=== PATIENT | female | born 1985 | race Two or more races ===

== ENCOUNTER 2022-01-21 08:18 | Inpatient (IN) | payer OTHER ==
[2022-01-21] MEDS ORDERED: Tranexamic Acid 1,000 MG in Sodium Chloride 0.9% 100 ML IV PRN (13:08)
[2022-01-21] MEDS ORDERED: Misoprostol 200 MCG Tab PO PRN (13:08)
[2022-01-21] MEDS ORDERED: Carboprost Tromethamine 250 MCG/1 ML Amp IM PRN (13:08)
[2022-01-21] MEDS ORDERED: Sodium Chloride 0.9% 2.5 ML Syringe FLUSH PRN (13:08)
[2022-01-21] MEDS ORDERED: Sodium Chloride 0.9% 10 ML Syringe FLUSH PRN (13:08)
[2022-01-21] MEDS ORDERED: Methylergonovine 0.2 MG/1 ML Amp IM PRN (13:08)
[2022-01-21] MEDS ORDERED: Lidocaine 1% 50 ML MDV INJECT PRN (13:08)
[2022-01-21] MEDS ORDERED: Sodium Chloride 0.9% 20 ML SDV IV PRN (13:08)
[2022-01-21] MEDS ORDERED: Terbutaline 1 MG/ML SDV SUBCUT PRN (13:08)
[2022-01-21] MEDS ORDERED: Water For Irrigation,Sterile 1,000 ML Container IRR PRN (13:08)
[2022-01-21] MEDS ORDERED: Oxytocin/0.9 % Sodium Chloride 30 UNIT/500 ML BAG IV SCH ×2 (13:15)
[2022-01-21] MEDS: Misoprostol 25 MCG (1/4 of 100 MCG) Tab VAG PRN ×2 (14:25→18:21)
[2022-01-21] MEDS: Lactated Ringers 1,000 ML IV SCH (14:26)
[2022-01-21 19:53] LABS: CARBON DIOXIDE,CO2 19.7 mmol/L (21.0-32.0); POTASSIUM,K 4.2 mmol/L (3.5-5.1)
[2022-01-21] MEDS: Butorphanol 1 MG/ML SDV IVPUSH PRN (20:16)
[2022-01-21] MEDS ORDERED: Labetalol 100 MG Tab PO SCH (21:00)
[2022-01-21] MEDS: Ondansetron 4 MG/2 ML SDV IVPUSH PRN (22:54)
[2022-01-22] MEDS: Lactated Ringers 1,000 ML IV SCH ×2 (01:34→08:15)
[2022-01-22] MEDS: Butorphanol 1 MG/ML SDV IVPUSH PRN (05:04)
[2022-01-22] MEDS: Ondansetron 4 MG/2 ML SDV IVPUSH PRN (05:06)
[2022-01-22] MEDS ORDERED: Phenylephrine HCl In 0.9% NaCl 1 MG/10 ML Vial ONE (06:51)
[2022-01-22] MEDS ORDERED: Dexmedetomidine 200 MCG/2 ML SDV ONE (06:51)
[2022-01-22] MEDS ORDERED: Bupivacaine 0.5% 10 ML SDV ONE (06:52)
[2022-01-22] MEDS ORDERED: ePHEDrine 50 MG/ML SDV IVPUSH PRN (06:59)
[2022-01-22] MEDS ORDERED: Phenylephrine HCl In 0.9% NaCl 1 MG/10 ML Vial IVPUSH SCH (07:00)
[2022-01-22] MEDS ORDERED: oxyCODONE 5 MG Tab PO PRN (08:44)
[2022-01-22] MEDS ORDERED: Ibuprofen 400 MG Tab PO PRN (08:44)
[2022-01-22] MEDS ORDERED: Acetaminophen 500 MG Tab PO PRN ×2 (08:44)
[2022-01-22] MEDS ORDERED: Benzocaine/Menthol 20%-0.5% Spray 78 GM Cannister TOP PRN (08:44)
[2022-01-22] MEDS ORDERED: Lanolin 100% Cream 7 GM Tube TOP PRN (08:44)
[2022-01-22] MEDS ORDERED: Docusate Sodium 100 MG Cap PO PRN (08:44)
[2022-01-22] MEDS ORDERED: Bisacodyl 10 MG Supp RECTAL PRN (08:44)
[2022-01-22] MEDS ORDERED: Witch Hazel Medicated Pads 40/Jar TOP PRN (08:44)
[2022-01-22] MEDS ORDERED: Tranexamic Acid 1,000 MG/10 ML Vial ONE (09:34)
[2022-01-22] MEDS: Ibuprofen 800 MG Tab PO PRN (22:45)
[2022-01-23 07:21] LABS: CARBON DIOXIDE,CO2 24.7 mmol/L (21.0-32.0); POTASSIUM,K 4.2 mmol/L (3.5-5.1)
[2022-01-23] MEDS: Ibuprofen 800 MG Tab PO PRN (08:06)
[2022-01-23] MEDS ORDERED: ferumoxytoL 510 MG in Sodium Chloride 0.9% 100 ML IV ONE (10:30)
== END 2022-01-23 12:56 | disposition home or self-care (01) | DRG 805 ==
LOC: MW.OB 08:18 → OBSVTOIN 01-22 08:18 → MW.OB 01-22 12:00
PROVIDERS: ADMIT Obstetrics & Gynecology; ATTEND Obstetrics & Gynecology
PROC: 10E0XZZ Delivery of Products of Conception, External Approach (ICD-10-PCS; principal; 2022-01-22)
PROC: 3E0R3BZ Introduction of Anesthetic Agent into Spinal Canal, Percutaneous Approach (ICD-10-PCS; 2022-01-22)
PROC: 3E033VJ Introduction of Other Hormone into Peripheral Vein, Percutaneous Approach (ICD-10-PCS; 2022-01-22)
PROC: 10907ZC Drainage of Amniotic Fluid, Therapeutic from Products of Conception, Via Natural or Artificial Opening (ICD-10-PCS; 2022-01-22)
PROC: 3E033VJ Introduction of Other Hormone into Peripheral Vein, Percutaneous Approach (ICD-10-PCS; 2022-01-22)
DX: O13.4 Gestational [pregnancy-induced] hypertension without significant proteinuria, complicating childbirth (principal); U07.1 COVID-19; Z37.0 Single live birth; O98.52 Other viral diseases complicating childbirth; Z3A.38 38 weeks gestation of pregnancy; O69.81X0 Labor and delivery complicated by cord around neck, without compression, not applicable or unspecified; O72.1 Other immediate postpartum hemorrhage; O99.02 Anemia complicating childbirth; D64.9 Anemia, unspecified
CPT/HCPCS: 01967; 36415; 51701; 59025; 59409; 80053; 81003; 82570; 82803; 84156; 84550; 85025; 85027; 86592; 86850; 86900; 86901; A9270-GY; J0595; J2210; J2405; J2590; J3490; J7120; Q0138

== ENCOUNTER 2024-06-22 05:48 | Emergency (ER) | payer BC, OTHER ==
[2024-06-22] MEDS: diphenhydrAMINE 50 MG/ML SDV IVPUSH ONE (06:37)
[2024-06-22] MEDS: Metoclopramide 10 MG/2 ML SDV IVPUSH ONE (06:37)
[2024-06-22] MEDS: Lactated Ringers 1,000 ML IV ONE (06:37)
[2024-06-22] MEDS: Ketorolac 30 MG/ML SDV IVPUSH ONE (06:37)
[2024-06-22] MEDS: methylPREDNISolone Sodium Succinate 125 MG/2 ML SDV IVPUSH ONE (10:51)
== END 2024-06-22 10:58 | disposition home or self-care (01) ==
LOC: MW.ED 05:48
DX: R51.9 Headache, unspecified (principal); I10 Essential (primary) hypertension
CPT/HCPCS: 70450; 96374; 96375; 99284; J1200; J1885; J2765; J2919; J7120; 99283